=== PATIENT | female | born 1965 | race Caucasian/White ===

== ENCOUNTER 2024-03-02 15:45 | Emergency (ER) | payer BC, SELFPAY ==
[2024-03-02 15:49] VITALS: BP 163/92
[2024-03-02 16:16] LABS: % Basophils 0.6 % (0-2); % Eosinophils 0.4 % (0-6); % Immature Granulocytes 0.2 % (0-0.5); % Lymphocytes 30.8 % (20.5-51.1); Absolute Lymphocytes 1.5 10^3/uL (1.2-3.4); Absolute Monocytes 0.4 10^3/uL (0.1-0.6); Absolute Neutrophils 2.8 10^3/uL (1.4-6.5); Hematocrit 35.4 % (37.0-47.0); Hemoglobin 13.1 g/dL (12.0-16.0); Mean Corpuscular Hgb 32.2 pg (27.0-31.0); Mean Platelet Volume 9.3 fL (7.4-10.4); Nucleated Red Blood Cells % 0 %; Platelet Count 196 10^3/uL (130-400); Red Blood Cell Count 4.07 10^6/uL (4.20-5.40); Red Cell Dist. Width 11.9 % (11.5-14.5); White Blood Cell Count 4.7 10^3/uL (4.8-10.8)
[2024-03-02 16:26] LABS: ALT (SGPT) 18 U/L (0-35); AST (SGOT) 25 U/L (14-36); Albumin 4.7 g/dl (3.5-5.0); Alkaline Phosphatase 65 U/L (38-126); Blood Urea Nitrogen 10 mg/dl (7-17); Calcium 10.2 mg/dl (8.4-10.2); Carbon Dioxide 23 mmol/L (22-30); Chloride 104 mmol/L (98-107); Glucose 112 mg/dl (70-99); Potassium 3.7 mmol/L (3.5-5.1); Sodium 137 mmol/L (135-145); Total Bilirubin 0.6 mg/dl (0.2-1.3); Total Protein 6.9 g/dl (6.3-8.2); eGFR > 60.00
[2024-03-02 16:37] LABS: Troponin I < 0.012 ng/ml
--- NOTE | 2024-03-02 23:22 | ED.GENMED ---
History of Present Illness
General
Chief Complaint: Musculo-Skeletal Complaint
Source: patient
Time Seen by Provider: 03/02/24 23:09
Travel History
Have you had any contact with someone who has COVID-19?: No
Do you have any symptoms of coronavirus? Fever > 100 degrees, chills, cough, shortness of breath, sore throat, loss of taste or smell, muscle aches, or headache?: No
History of Present Illness
History of Present Illness:
58-year-old female presents to the emergency room complaining of pain starting from her right neck/shoulder rating on her arm. Pain began early this morning at 330. Somewhat worse with movement. She denies any fever, chills, nausea vomiting. She
denies any trauma. She does not have any known history of cervical spine disease. No chest pain or shortness of breath.
Past History
Past History
ED Past Medical History: Other (Breast cancer on tamoxifen)
ED Past Surgical History: None
Social History
Tobacco: Non-smoker
Personal:
Living: with family
Employment: Employed (RN)
Phy Exam
Physical Exam
Physical Exam:
General: Awake, Alert, Oriented X3. No acute distress.
Vitals: unremarkable
Head: Atraumatic
Eyes: Pupils equal, EOMI
Throat: Airway intact, no exudates
Neck: Trachea midline, no tenderness to palpation midline spine
Lungs: Clear and equal b/l
Heart: Regular rate, no murmurs
Abd: Soft, Nontender, No pulsatile mass
Neuro: No focal weakness
Skin: Warm, dry, no rash particular no vesicular rash
Extremities: pulses equal b/l, no edema. Some tenderness over the humeral head
Course
Orders/Labs/Results
Orders:
Orders
03/02/24 15:51
Electrocardiogram (*1) Urgent
Reason for Study: Chest Pain
EKG- Treatment ONCE
03/02/24 16:01
Complete Blood Count/With Diff Urgent
Comprehensive Metabolic Panel Urgent
Troponin I Urgent
03/02/24 23:21
Ketorolac [Toradol] 30 mg IM NOW STA
Prednisone [Deltasone] 50 mg PO NOW STA
Cervical Spine 4 or 5 Vw [CR Cervical Spine 4 Or 5 Vw] Urgent
Comment:
Reason For Exam: neck pain radiating to left arm
Shoulder, Left 2 View CR [CR Shoulder - Left Min 2 View*] Urgent
Comment:
Reason For Exam: shoulder pain no trauma
Abnormal Lab Results
03/02/24
16:01
WBC 4.7 L 10^3/uL
(4.8-10.8)
RBC 4.07 L 10^6/uL
(4.20-5.40)
Hct 35.4 L %
(37.0-47.0)
MCH 32.2 H pg
(27.0-31.0)
Glucose 112 H mg/dl
(70-99)
03/02/24 16:01
03/02/24 16:01
Vital Signs
Initial and Last Documented VS:
Initial Vital Signs
Temp Pulse Resp BP Pulse Ox
98.1 F 105 18 163/92 97
03/02/24 15:49 03/02/24 15:49 03/02/24 15:49 03/02/24 15:49 03/02/24 15:49
Last Documented Vital Signs
Temp Pulse Resp BP Pulse Ox
98.1 F 63 18 134/86 98
03/02/24 15:49 03/03/24 00:24 03/03/24 00:24 03/03/24 00:24 03/03/24 00:24
MDM/Problems Addressed
Differential Diagnosis Includes:
Rotator cuff injury, DJD left shoulder DJD cervical spine with radiculopathy
MDM/Problems Addressed:
Cervical spine films shows DJD of the cervical spine. Shoulder films are unremarkable. Presentation is consistent with cervical radiculopathy. Labs that were obtained in triage are all unremarkable. EKG shows no acute ischemic changes.
Chronic conditions affecting care: HTN
*Radiology
Radiology exam reviewed: preliminary read by ED provider (I personally reviewed the patient's cervical spine films and notes some degenerative changes, shoulder x-ray is unremarkable)
*Pulse Oximetry
Patient hypoxic: no
*Critical Care Note
Total Time (30-74mins, 75-104mins- exclusive of procedures): Not Applicable
Patient Management
Social determinants of health affecting care: Strong social support
ED Attending Note
-
Portions of this chart may have been created with voice recognition software.� Occasional wrong word or��sound alike� substitutions may have occurred due to the inherent limitations of voice recognition software.
Discharge Plan
Departure
Patient Disposition: Home (Routine Discharge)
Date of Disposition: 03/03/24
Time of Disposition: 00:08
Patient with high blood pressure during this ER visit?: Yes
Condition: Good
Discharge Problem:
Cervical radiculopathy
Instructions: Radiculopathy of the neck and back (including sciatica)
Prescriptions:
New
prednisone 20 mg tablet
40 mg PO DAILY Qty: 8 0RF
oxycodone 5 mg tablet
5 mg PO Q6H PRN (Reason: Pain) Qty: 12 0RF
No Action
cyclobenzaprine 10 MG tablet
10 mg PO TIDPRN PRN (Reason: spasm) Qty: 9 0RF
Referrals:
Rivas Navarro MD [Active] -
UNKNOWN - PT DOES,NOT KNOW [Family Provider] -
Activity Restrictions/Additional Instructions:
Please follow up with your primary care doctor. I have also provided the contact information for Dr Navarro who manages neck and back pain.
Interventions
Interventions:
*Risk Screen - Suicide Last Done: 03/02/24 15:49
*General Assessment Last Done: 03/02/24 15:49
*Neglect/Abuse Screening Last Done: 03/02/24 15:49
ED- Fall Risk Assessment Last Done: 03/03/24 00:00
*ED COVID-19 Vaccine History Last Done: 03/02/24 15:49
*Nursing Disposition Last Done: 03/03/24 00:25
ED-Musculoskeletal Assessment Last Done: 03/03/24 00:00
Discharge Date and Time
Discharge Date/Time: 03/03/24 00:25
Print Language: ARABIC
[2024-03-02] MEDS: TORADOL 30 MG IM (23:38)
[2024-03-02] MEDS: DELTASONE 50 MG PO (23:38)
[2024-03-03 00:24] VITALS: BP 134/86
== END 2024-03-03 00:25 | disposition home or self-care (01) ==
LOC: EMR 15:45
PROVIDERS: Emergency Medicine; EMERGENCY PHYSICIAN Emergency Medicine
DX: M54.12 Radiculopathy, cervical region (principal); I10 Essential (primary) hypertension
CPT/HCPCS: 99285; 72050; 73030; 80053; 84484; 85025; 93005

== ENCOUNTER 2024-03-22 08:25 | Outpatient (RCR) | payer BC, SELFPAY | END 2024-03-22 23:59 | disposition home or self-care (01) | LOC: RPT 08:25 | PROVIDERS: ATTENDING PHYSICIAN Orthopaedic Surgery; FAMILY PHYSICIAN Family Medicine | DX: M54.2 Cervicalgia (principal); Z73.6 Limitation of activities due to disability | CPT/HCPCS: 97010; 97110; 97112; 97140; 97162 ==

== ENCOUNTER → 2024-06-20 18:30 | Outpatient (REF) | payer OTHER, SELFPAY | LOC: WDC 18:30 | PROVIDERS: ATTENDING PHYSICIAN Nurse Practitioner Adult Health; FAMILY PHYSICIAN Internal Medicine | DX: Z78.0 Asymptomatic menopausal state (principal); Z12.31 Encounter for screening mammogram for malignant neoplasm of breast; Z85.3 Personal history of malignant neoplasm of breast | CPT/HCPCS: 77063; 77067 ==

== ENCOUNTER → 2024-06-29 09:35 | Outpatient (REF) | payer OTHER, SELFPAY | LOC: WDC 09:35 | PROVIDERS: ATTENDING PHYSICIAN Nurse Practitioner Adult Health; FAMILY PHYSICIAN Internal Medicine | DX: R92.8 Other abnormal and inconclusive findings on diagnostic imaging of breast (principal) | CPT/HCPCS: 77065 ==

== ENCOUNTER → 2024-07-31 12:28 | Outpatient (REF) | payer OTHER, SELFPAY ==
--- NOTE | 2024-07-31 13:54 | OID.BR.INTR ---
[facility] Navigator - Initial
- -
Date of Contact: 07/31/24
Met with patient. Patient given written information on navigator services available at [facility]. Will follow up as needed per protocol.
== END ==
LOC: WDC 12:28
PROVIDERS: ATTENDING PHYSICIAN Nurse Practitioner Adult Health
DX: N63.20 Unspecified lump in the left breast, unspecified quadrant (principal); R92.1 Mammographic calcification found on diagnostic imaging of breast
CPT/HCPCS: 88305; 19081; 76098; A4648

== ENCOUNTER → 2025-07-10 10:11 | Outpatient (REF) | payer OTHER, SELFPAY | LOC: HWWDC 10:11 | PROVIDERS: ATTENDING PHYSICIAN Nurse Practitioner Adult Health; FAMILY PHYSICIAN Nurse Practitioner Adult Health | DX: Z12.31 Encounter for screening mammogram for malignant neoplasm of breast (principal); Z78.0 Asymptomatic menopausal state | CPT/HCPCS: 77063; 77067; 77080 ==

== ENCOUNTER 2025-10-29 06:30 | Day surgery (SDC) | payer OTHER, SELFPAY | END 2025-10-29 08:58 | disposition home or self-care (01) | LOC: GI 06:30 | PROVIDERS: ATTENDING PHYSICIAN Internal Medicine | DX: Z12.11 Encounter for screening for malignant neoplasm of colon (principal); D12.2 Benign neoplasm of ascending colon; K63.5 Polyp of colon; K57.30 Diverticulosis of large intestine without perforation or abscess without bleeding; K64.9 Unspecified hemorrhoids; Z86.0101 Personal history of adenomatous and serrated colon polyps | CPT/HCPCS: 45380; 88305 ==